=== PATIENT | male | born 1945 | race Caucasian/White ===

== ENCOUNTER 2017-07-15 06:21 | Day surgery (SDC) | payer OTHER ==
[2017-07-12 15:19] VITALS: BP 129/65
[2017-07-12 15:26] LABS: BASOPHILS % (AUTO) 0.4 % (0.0-5.0); EOSINOPHILS % (AUTO) 1.6 % (0.0-8.0); HEMATOCRIT 43.2 % (42-54); LYMPHOCYTES % (AUTO) 17.2 % (21.0-51.0); MEAN CORPUSCULAR VOLUME 90.8 fL (79-99); MONOCYTES % (AUTO) 5.6 % (3.0-13.0); NEUTROPHILS % (AUTO) 75.2 % (40.0-77.0); PLATELET COUNT (AUTO) 178 K/uL (130-400); RED BLOOD CELL COUNT(AUTO) 4.76 MIL/uL (4.50-6.20); WHITE BLOOD COUNT (AUTO) 11.6 K/uL (4.8-10.8)
[2017-07-12 15:40] LABS: CREATININE 1.4 mg/dL (0.5-1.5); POTASSIUM 4.7 mmol/L (3.5-5.1)
[2017-07-12 15:43] LABS: INR 1.03 (0.85-1.15); PROTHROMBIN TIME 10.8 SEC (9.6-11.6)
[2017-07-12 15:55] LABS: APPEARANCE,URINE Clear (CLEAR); BILIRUBIN,URINE Negative (NEGATIVE); COLOR,URINE Yellow (YELLOW); GLUCOSE, URINE (UA) >=1000 mg/dL (NEGATIVE); KETONES,URINE Negative (NEGATIVE); LEUKOCYTE ESTERASE ,URINE Negative (NEGATIVE); NITRATE,URINE Negative (NEGATIVE); OCCULT BLOOD,URINE Negative (NEGATIVE); PH,URINE 5.5 (5.0-8.0); PROTEIN,URINE Negative (NEGATIVE)
[2017-07-12 16:20] LABS: BACTERIA,URINE None Seen /HPF (None Seen); MUCUS,URINE None Seen LPF (None Seen); RBC,URINE 0-1 /HPF (0-1); SQUAMOUS EPITHELIAL CELL,UR None Seen /HPF (0-2); WBC,URINE None Seen /HPF (0-1); YEAST,URINE BUDDING None Seen /HPF (None Seen)
[~2017-07-15] VITALS: Ht 175.3 cm; Wt 87.0 kg
[2017-07-15] VITALS (14 sets, daily range): BP systolic 102–138; BP diastolic 48–75
[~2017-07-15 06:21] MED LIST: ASPI-555 PO; CEFTRIAXONE SODIUM 1 GM IVP SCH; ENAL20TA PO; GENTAMICIN 80 MG/NS 100 ML PB 100 ML IV SCH; INSU300I SQ; MULT-685 PO; POLY17PO4 PO; SIMV20TA6 PO; SITA100T12 PO
[2017-07-15] MEDS ORDERED: SODIUM CHLORIDE 0.9% 1000ML 1,000 ML IV ONE (07:02)
[2017-07-15] MEDS ORDERED: CEFTRIAXONE SODIUM 1 GM ONE (07:02)
[2017-07-15] MEDS ORDERED: PROPOFOL 10 MG/ML 20ML VIAL IV ONE (08:11)
[2017-07-15] MEDS ORDERED: FENTANYL CITRATE PF 50 MCG/1 ML 2ML VIAL ONE (08:12)
[2017-07-15] MEDS ORDERED: MEPERIDINE-PF 25 MG/ML SYG ONE (09:50)
== END 2017-07-15 12:08 | disposition home or self-care (01) ==
LOC: DAH 06:21
PROVIDERS: ATTEND Urology
DX: N40.1 Benign prostatic hyperplasia with lower urinary tract symptoms (principal); R33.8 Other retention of urine; I25.10 Atherosclerotic heart disease of native coronary artery without angina pectoris; E11.51 Type 2 diabetes mellitus with diabetic peripheral angiopathy without gangrene; N32.89 Other specified disorders of bladder; Z98.890 Other specified postprocedural states; N52.9 Male erectile dysfunction, unspecified; I10 Essential (primary) hypertension; J44.9 Chronic obstructive pulmonary disease, unspecified; Z79.899 Other long term (current) drug therapy
CPT/HCPCS: 36415; 52648; 71045; 80048; 81001; 82948 ×2; 85025; 85610; 87088; 93005; A4218; A4354; A4358; A4600; C1758; J0696; J1580; J2175; J2704; J3010; J7030 ×2